=== PATIENT | female | born 1990 | race Caucasian/White ===

== ENCOUNTER 2021-09-26 18:25 | Emergency (ER) | payer OTHER ==
[2021-09-26 20:40] LABS: Urine Blood Negative (Negative); Urine Glucose 1+ (Negative); Urine Protein 2+ (Negative)
[2021-09-26 20:44] LABS: Absolute Lymphocytes (CBC) 1.6 K/uL (0.7-4.9); Hematocrit 41.3 % (36.0-45.0); Lymphocytes % 12.8 % (15.3-44.8); MPV 7.9 fL (7.6-11.3); RBC Red Blood Cell Count 4.52 M/uL (3.86-4.86)
[2021-09-26] MEDS ORDERED: NA CHLORIDE 0.9% 1,000 ML ONE (20:56)
[2021-09-26] MEDS ORDERED: MORPHINE 4 MG/ML SYR ONE (20:56)
[2021-09-26] MEDS ORDERED: ONDANSETRON 4 MG/2 ML VIAL ONE (20:56)
[2021-09-26] MEDS ORDERED: FAMOTIDINE 20 MG/2 ML VIAL IV ONE (20:56)
[2021-09-26 21:01] LABS: Urine Bacteria <20 /HPF (<20); Urine Mucus 3+ /HPF (NONE SEEN); Urine RBC <5 /HPF (NONE SEEN)
[2021-09-26 21:01] LABS: Bilirubin Total 0.3 mg/dL (0.2-1.0); Protein, Total 7.5 g/dL (6.4-8.2)
--- NOTE | 2021-09-26 21:35 | RAD REPORT ---
EXAM DESCRIPTION: CTAbdomen Pelvis W Contrast - 09/26/2021 9:20 pm CLINICAL HISTORY: Abdominal pain. Abdominal pain, acute, nonlocalized COMPARISON: No comparisons TECHNIQUE: Biphasic CT imaging of the abdomen and pelvis was performed with 100 ml non-ionic IV cont rast. All CT scans are performed using dose optimization technique as appropriate and may include automated exposure control or mA/KV adjustment according to patient size. FINDINGS: The lung bases are clear. The liver, spleen, pancreas, adrenal glands and left kidney are within normal limits. 2 mm stone is p resent at the right UVJ resulting in mild right hydronephrosis. No bowel obstruction, free air, free fluid or abscess. The appendix is normal. No evidence of signi ficant lymphadenopathy. No suspicious bony findings. IMPRESSION: 2 mm stone is present at the right UVJ with mild right hydronephrosis.
[2021-09-26] MEDS ORDERED: CEFTRIAXONE 1000 MG/VIAL ONE (22:42)
[2021-09-26] MEDS ORDERED: PROMETHAZINE INJ 25 MG/ML AMP ONE (22:42)
[2021-09-26] MEDS ORDERED: POTASSIUM 25 MEQ EFFERV TAB ONE (22:43)
--- NOTE | 2021-09-27 00:06 | ER ---
Nurse's Notes [facility] Name: Dennis Nicholas Age: 31 yrs Sex: Female : 1990 Arrival Date: 09/26/2021 Time: 18:28 Bed Treatment Private MD: Diagnosis: UTI/ Urinary tract infection, site not specified;Ureterolithiasis Presentation: 09/26 18:39 Chief complaint: Patient states: right lower abdominal pain began x 2 days pain ll1 decreases with pressure. . frequent urination pain increases with eating. LMP 09/21/21. Coronavirus screen: Vaccine status: Patient reports being unvaccinated. Ebola Screen: Patient negative for fever greater than or equal to 101.5 degrees Fahrenheit, and additional compatible Ebola Virus Disease symptoms. Initial Sepsis Screen: Does the patient meet any 2 criteria? No. Patient's initial sepsis screen is negative. Risk Assessment: Do you want to hurt yourself or someone else? Patient reports no desire to harm self or others. Onset of symptoms was September 24, 2021. 18:39 Method Of Arrival: Ambulatory 1 18:39 Acuity: VINNY 3 ll1 22:53 Initial Sepsis Screen: Does the patient meet any 2 criteria? No. Patient's initial kd3 sepsis screen is negative. Does the patient have a suspected source of infection? No. Patient's initial sepsis screen is negative. Triage Assessment: 22:52 General: Appears in no apparent distress. Behavior is calm, cooperative. Pain: Denies kd3 pain. 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 - Social history:: Smoking status: Patient denies any tobacco usage or history of. Screenin:52 Abuse screen: Denies threats or abuse. Denies injuries from another. Nutritional kd3 screening: No deficits noted. Tuberculosis screening: No symptoms or risk factors identified. Fall Risk IV access (20 points). Assessment: 09/27 00:46 Reassessment: Patient is alert, oriented x 3, equal unlabored respirations, skin bb warm/dry/pink. pt verbalized understanding of and agrees to plan of care discharge instructions given pt ambulated with steady gait to exit. Vital Signs: 09/26 18:39 Pulse 107; Resp 18; Temp 98.3(O); Pulse Ox 99% on R/A; Pain 7/10; ll1 18:42 BP 135 / 78; ll1 09/27 00:01 BP 128 / 87; Pulse 75; Resp 16; Temp 98.6; Pulse Ox 99% on R/A; kd3 ED Course: 09/26 18:28 Patient arrived in ED. ds1 18:42 Triage completed. ll1 19:59 Tiburcio De Leon MD is Attending Physician. mh7 20:14 Ekaterina Pino, RN is Primary Nurse. kd3 21:22 CT Abd/Pelvis - IV Contrast Only In Process Unspecified. EDMS 22:52 Arm band placed on right wrist. kd3 22:53 Patient has correct armband on for positive identification. Bed in low position. Call [facility] in reach. 09/27 00:04 Linda Presley MD is Referral Physician. 7 00:05 Cristian Paula MD is Referral Physician. 7 00:47 No provider procedures requiring assistance completed. IV discontinued, intact, bb bleeding controlled, No redness/swelling at site. Pressure dressing applied. Administered Medications: 09/26 20:58 Drug: NS 0.9% 1000 ml Route: IV; Rate: 1 bolus; Site: right antecubital; ld1 20:58 Drug: morphine 4 mg Route: IVP; Site: right antecubital; ld1 20:59 Drug: Pepcid (famotidine) 20 mg Route: IVP; Site: right antecubital; ld1 20:59 Drug: Zofran (Ondansetron) 4 mg Route: IVP; Site: right antecubital; ld1 22:51 Drug: Potassium Effervescent Tablet 50 mEq Route: PO; kd3 22:51 Drug: Phenergan (promethazine) 12.5 mg Route: IVP; Site: right antecubital; kd3 22:52 Drug: Rocephin (cefTRIAXone) 1 grams Route: IV; Rate: per protocol; Site: right kd3 antecubital; Medication: 22:53 VIS not applicable for this client. kd3 Outcome: 09/27 00:05 Discharge ordered by . javon 00:47 Discharged to home ambulatory. noreen 00:47 Condition: stable 00:47 Discharge instructions given to patient, Instructed on discharge instructions, follow up and referral plans. medication usage, Demonstrated understanding of instructions, follow-up care, medications, Prescriptions given X x 5 00:48 Patient left the ED. bb Signatures: Dispatcher [employer] EDIA Lois Lorenzo ds1 Hellen Foote RN RN bb Avery Jolley RN RN ll1 Tiburcio De Leon MD MD mh7 Dibbern, Lauren, RN RN ld1 Ekaterina Pino RN RN kd3
--- NOTE | 2021-09-27 00:07 | EDPHYS ---
Physician Documentation [facility] Name: Dennis Nicholas Age: 31 yrs Sex: Female : 1990 Arrival Date: 09/26/2021 Time: 18:28 Bed Treatment Private MD: ED Physician Tiburcio De Leon HPI: 09/26 20:27 This 31 yrs old Female presents to ER via Ambulatory with complaints of R side Pain, mh7 Urinary Frequency. 20:27 The patient presents with abdominal pain right lower quadrant. Onset: The mh7 symptoms/episode began/occurred 2 day(s) ago. The symptoms do not radiate. Associated signs and symptoms: Pertinent positives: nausea and vomiting, dysuria, Pertinent negatives: anorexia, blood in stools, chest pain, constipation, diarrhea, fever, headache, hematuria, palpitations, shortness of breath, vaginal discharge, vomiting blood. The symptoms are described as intermittent, vague, waxing/waning. Modifying factors: The symptoms are alleviated by nothing, the symptoms are aggravated by food. Severity of pain: At its worst the pain was moderate yesterday, in the emergency department the pain is unchanged. 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 - Social history:: Smoking status: Patient denies any tobacco usage or history of. ROS: 20:27 Constitutional: Negative for fever, chills, and weight loss, Eyes: Negative for injury, mh7 pain, redness, and discharge, ENT: Negative for injury, pain, and discharge, Neck: Negative for injury, pain, and swelling, Cardiovascular: Negative for chest pain, palpitations, and edema, Respiratory: Negative for shortness of breath, cough, wheezing, and pleuritic chest pain, Back: Negative for injury and pain, MS/Extremity: Negative for injury and deformity, Skin: Negative for injury, rash, and discoloration, Neuro: Negative for headache, weakness, numbness, tingling, and seizure, Psych: Negative for depression, anxiety, suicide ideation, homicidal ideation, and hallucinations, Allergy/Immunology: Negative for hives, rash, and allergies, Endocrine: Negative for neck swelling, polydipsia, polyuria, polyphagia, and marked weight changes, Hematologic/Lymphatic: Negative for swollen nodes, abnormal bleeding, and unusual bruising. Exam: 20:27 Head/Face: Normocephalic, atraumatic. Eyes: Pupils equal round and reactive to light, mh7 extra-ocular motions intact. Lids and lashes normal. Conjunctiva and sclera are non-icteric and not injected. Cornea within normal limits. Periorbital areas with no swelling, redness, or edema. Neck: Trachea midline, no thyromegaly or masses palpated, and no cervical lymphadenopathy. Supple, full range of motion without nuchal rigidity, or vertebral point tenderness. No Meningismus. Chest/axilla: Normal chest wall appearance and motion. Nontender with no deformity. No lesions are appreciated. Cardiovascular: Regular rate and rhythm with a normal S1 and S2. No gallops, murmurs, or rubs. Normal PMI, no JVD. No pulse deficits. Respiratory: Lungs have equal breath sounds bilaterally, clear to auscultation and percussion. No rales, rhonchi or wheezes noted. No increased work of breathing, no retractions or nasal flaring. Back: No spinal tenderness. No costovertebral tenderness. Full range of motion. Skin: Warm, dry with normal turgor. Normal color with no rashes, no lesions, and no evidence of cellulitis. MS/ Extremity: Pulses equal, no cyanosis. Neurovascular intact. Full, normal range of motion. Neuro: Awake and alert, GCS 15, oriented to person, place, time, and situation. Cranial nerves II-XII grossly intact. Motor strength 5/5 in all extremities. Sensory grossly intact. Cerebellar exam normal. Normal gait. Psych: Awake, alert, with orientation to person, place and time. Behavior, mood, and affect are within normal limits. 20:27 Constitutional: The patient appears in no acute distress, alert, awake, uncomfortable. 20:27 Abdomen/GI: Inspection: obese Bowel sounds: normal, in all quadrants, Palpation: mild mh7 abdominal tenderness, in the suprapubic area and right lower quadrant, mass, is not appreciated, rebound tenderness, is not appreciated, voluntary guarding, is not appreciated, involuntary guarding, is not appreciated, no appreciated organomegaly, Indicators: McBurney's point is not tender, Aparicio's sign is negative, Rovsing's sign is negative, Obturator sign is negative, Psoas sign is negative, Liver: no appreciated palpable abnormalities, Hernia: not appreciated. Vital Signs: 18:39 Pulse 107; Resp 18; Temp 98.3(O); Pulse Ox 99% on R/A; Pain 7/10; ll1 18:42 BP 135 / 78; ll1 05 00:01 BP 128 / 87; Pulse 75; Resp 16; Temp 98.6; Pulse Ox 99% on R/A; kd3 MDM: 00:01 Differential diagnosis: bowel obstruction, Cholelithiasis, diverticulitis, mh7 gastroesophageal reflux disease, Irritable bowel syndrome, non-specific abd pain, Ureterolithiasis, urinary tract infection. Data reviewed: vital signs, nurses notes, lab test result(s), CBC, electrolytes, urinalysis, UPT: negative radiologic studies, CT scan. Data interpreted: Pulse oximetry: on room air is 99 %. Interpretation: normal. Counseling: I had a detailed discussion with the patient and/or guardian regarding: the historical points, exam findings, and any diagnostic results supporting the discharge/admit diagnosis, lab results, radiology results, the need for outpatient follow up, a urologist. Response to treatment: the patient's symptoms have resolved after treatment, the patient's blood pressure is in an acceptable range, mental status has returned to baseline, the patient no longer shows bradycardia, the patient is not short of breath, the patient is not tachycardic, the patient's pain is gone, the patient's temperature has normalized, the patient is now symptom free, patient is well hydrated. Physician consultation: Cristian Paula MD was contacted at 22:20, regarding patient's condition, and will see patient in office. 00:05 Patient medically screened. [facility] 09/26 20:20 Order name: CBC with Diff; Complete Time: 21:13 [facility] 09/26 20:20 Order name: CMP; Complete Time: 21:13 [facility] 09/26 20:20 Order name: Lipase; Complete Time: 21:13 [facility] 09/26 20:20 Order name: Urine Microscopic Only; Complete Time: 21:13 [facility] 09/26 20:40 Order name: Urine Dipstick-Ancillary; Complete Time: 20:53 EDMS 09/26 20:43 Order name: Urine --Ancillary (enter results); Complete Time: 21:13 mw2 09/26 20:20 Order name: CT Abd/Pelvis - IV Contrast Only; Complete Time: 21:42 [facility] 09/26 21:14 Order name: Urine Culture [facility] 09/26 20:20 Order name: IV Saline Lock; Complete Time: 20:42 [facility] 09/26 20:20 Order name: Labs collected and sent; Complete Time: 20:42 [facility] 09/26 20:20 Order name: Urine Dipstick-Ancillary (obtain specimen); Complete Time: 20:42 [facility] 09/26 20:20 Order name: Urine Test (obtain specimen); Complete Time: 20:42 [facility] Administered Medications: 09/26 20:58 Drug: NS 0.9% 1000 ml Route: IV; Rate: 1 bolus; Site: right antecubital; ld1 20:58 Drug: morphine 4 mg Route: IVP; Site: right antecubital; ld1 20:59 Drug: Pepcid (famotidine) 20 mg Route: IVP; Site: right antecubital; ld1 20:59 Drug: Zofran (Ondansetron) 4 mg Route: IVP; Site: right antecubital; ld1 22:51 Drug: Potassium Effervescent Tablet 50 mEq Route: PO; kd3 22:51 Drug: Phenergan (promethazine) 12.5 mg Route: IVP; Site: right antecubital; kd3 22:52 Drug: Rocephin (cefTRIAXone) 1 grams Route: IV; Rate: per protocol; Site: right kd3 antecubital; Disposition Summary: 09/27/21 00:05 Discharge Ordered Location: Home [facility] Problem: new [facility] Symptoms: have improved [facility] Condition: Stable [facility] Diagnosis - UTI/ Urinary tract infection, site not specified [facility] - Ureterolithiasis [facility] Followup: [facility] - With: Linda Presley MD - When: 1 - 2 days - Reason: Worsening of condition, Recheck today's complaints Followup: [facility] - With: Cristian Paula MD - When: 1 - 2 days - Reason: Worsening of condition, Recheck today's complaints Discharge Instructions: - Discharge Summary Sheet [facility] - Kidney Stones, [id number] [facility] - Urinary Tract Infection, Adult, [id number] [facility] Forms: - Medication Reconciliation Form [facility] - Thank You Letter [facility] - Antibiotic Education [facility] - Prescription Opioid Use [facility] Prescriptions: - Flomax 0.4 mg Oral capsule - take 1 capsule by ORAL route once daily for 7 days 1/2 hour following the same [facility] meal each day; 7 capsule; Refills: 0, Product Selection Permitted - ketorolac 10 mg Oral tablet - take 1 tablet by ORAL route every 6 hours As needed not to exceed 40 mg in [facility] 24hrs; 15 tablet; Refills: 0, Product Selection Permitted - ondansetron 4 mg Oral tablet,disintegrating - place 1 tablet by TRANSLINGUAL route every 8 hours As needed; 10 tablet; [facility] Refills: 0, Product Selection Permitted - Cipro 500 mg Oral Tablet - take 1 tablet by ORAL route every 12 hours for 10 days; 20 tablet; Refills: 0, [facility] Product Selection Permitted - VALCYCLOVIR - take 1000 milligram by ORAL route once daily; 15 milligram; Refills: 0, Product [facility] Selection Permitted Signatures: Dispatcher [employer] Avery Funez RN RN ll1 Tiburcio De Leon MD MD 7 Savannah Fu RN RN ld1 Ekaterina Pino RN RN kd3
[2021-09-27 00:54] VITALS: O2SAT 99
[2021-09-27 00:57] VITALS: BP 128/87; TEMP 98.6
== END 2021-09-27 00:48 | disposition home or self-care (01) ==
LOC: ER 18:25
DX: N39.0 Urinary tract infection, site not specified (principal); N20.1 Calculus of ureter; R11.2 Nausea with vomiting, unspecified; E03.9 Hypothyroidism, unspecified
CPT/HCPCS: 87088; 85025; 87086; 36415; 81025; 83690; 80053; 74177; Q9967; J2550; J7030; J2405; J3490; 81003; 81015; 96374; 96375; 99283